=== PATIENT | male | born 1955 | race Caucasian/White ===

== ENCOUNTER 2018-03-15 05:20 | Inpatient (IN) | payer SELFPAY ==
[2018-03-01 10:45] VITALS: BP 133/93; PULSE 69; RESP 16; TEMP 36.5; O2SAT 96; BMI 27.3
--- NOTE | 2018-03-01 13:52 | PCM.HP.BLA ---
History and Physical DATE OF SURGERY: 03/15/2018 SCHEDULED PROCEDURE: Direct anterior left total hip arthroplasty HISTORY OF PRESENT ILLNESS: This is a 62-year-old male who presents today for ongoing pain in the left hip for over 2 years. Patient's pain has been constant. He denies any trauma or injury. Patient has increased pain with prolonged sitting as well as going up and down stairs and walking any amount of distance. Patient feels difficult time with activities of daily living that require any walking. Patient complains of left groin pain. He does have start up pain. Pain does waken him at night. Patient has tried conservative measures consisting of rest, and ice with minimal relief. 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 Patient has no documented medical history. He has been using a cane for ambulatory assistance. He denies previous surgery on the left hip. She currently denies any chest pain, shortness of breath, fevers chills, recent infections. We are obtaining surgical clearance and patient's primary care physician. After failing conservative measures and discussing all treatment options with Dr. Ankur Santizo, patient like to proceed with an anterior total hip arthroplasty on the left. REVIEW OF SYSTEMS: ROS: Const: Denies change in appetite, fever and weight change. CV: Denies chest pain, heart murmur and irregular heartbeat. Resp: Denies cough, pneumonia, shortness of breath, tuberculosis and wheezing. GI: Denies constipation, diarrhea, heartburn, nausea, rectal itching, bloody stools and vomiting. : Denies incontinence. Musculo: Reports pain and trouble walking, but denies leg swelling and weakness. Skin: Denies Raynaud's, history of shingles and tattoo. Neuro: Denies ambulatory dysfunction, dizziness, numbness/tingling and tremor. Psych: Denies anxiety, insomnia and stress. Kyle/Lymph: Denies anemia, bleeding/bruising tendency and past transfusion. Reviewed, no changes. 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 SOCIAL HISTORY: SH: Marital: .Occupation: Self Employed - [employer].Work Status: Currently Working.Hand Dominance: Right-handed. Personal Habits: Cigarette Use: Never Smoked Cigarettes.Alcohol: Denies use.Drug Use: Denies Use.Enjoy Exercising: Daily. Reviewed, no changes. VITALS: Ht: 69.5 Wt: 196lb Wt k.906 BMI: 28.5 BP: 134/89 Pulse: 76 Resp: 18 T: 97.4 T: 36.3C ALLERGIES: Penicillin MEDICATIONS: No Active Medications PRE-OP EXAM: General appearance:NORMAL Other: Eyes: Conjunctivae and lids: NORMAL Pupils: ERR Ears, Nose, Mouth, and Throat: NORMAL Other: Inspection of lips, teeth and gums: NORMAL Other: Neck: Examination of neck: no masses noted. Respiratory: Assessment of respiratory effort: NORMAL Other: Auscultation of lungs: clear to auscultation no wheezes, rhonchi or rales. Cardiovascular: Auscultation of heart: regular rate and rhythm, no murmurs, gallops or rubs. Exam of carotid arteries: NORMAL Other: Gastrointestinal: Exam of abdomen: soft, nontender, nondistended bowel sounds present. PHYSICAL EXAMINATION: Patient walks with an antalgic gait. Left hip is cool to touch without erythema. Patient has left hip flexion to 80, internal rotation 5, external rotation 30. Pain is reproduced with flexion and internal rotation. Sensations intact to light touch. IMAGING STUDIES: X-rays of the left hip reveal joint space narrowing, subchondral sclerosis, and osteophyte formation consistent with severe osteoarthritis. Patient does have noticeable leg length discrepancy on radiographs with flattening of the femoral head and large cysts in the femoral head and acetabulum. IMPRESSION: 1. Severe left hip osteoarthritis PLAN: Dr. Santizo did discuss and review with the patient all treatment options including surgical versus nonsurgical options. Patient does wish to proceed with the above-stated procedure. Potential risks, benefits, and complications of the procedure were discussed in detail including but not limited to , infection, nerve and blood vessel damage, persistent pain, numbness, tingling, paresthesias, blood clot, pulmonary embolism, and requirement for possible further surgery. The patient expressed full understanding and has no further questions for the doctor. Patient does agree to proceed with the above-stated procedure and has signed the surgery consent form. ___ I have re-examined the patient. There are no clinical changes since date of exam. ___ See progress notes for changes. ___ Dictated on admission Date: Time: Signature:
--- NOTE | 2018-03-09 10:34 | CASEMGMT ---
Attempted to reach patient to discuss any discharge needs after upcoming surgery. Spoke with , Luiza, patient is at work and on the road currently. Per , plan is for patient to return home after surgery. There are 3 steps into the home from outside and bedroom/bathroom are on 1st level. is planning to assist as needed at home and will also assist with transportation to/from outpatient therapy at [facility]. states that patient has a cane and walker at home and that the toilet is a higher toilet.
[2018-03-15] VITALS (14 sets, daily range): BP systolic 108–147; BP diastolic 65–97; PULSE 68–86; RESP 16–18; TEMP 36.4–37.1; O2SAT 92–98; BMI 27.3; BMI 26.8
[2018-03-15] MEDS: oxyCODONE HCl Cr 10 MG Tablet PO (06:18)
[2018-03-15] MEDS: Acetaminophen 500 MG Tablet 1000 MG PO ×3 (06:18→21:09)
[2018-03-15] MEDS: Celecoxib 200 MG Capsule 400 MG PO (06:19)
[2018-03-15] MEDS: Lactated Ringers 1,000 ML 999 ML IV (06:33)
--- NOTE | 2018-03-15 06:44 | PCM.OPRPT ---
Report of Operation Date of Procedure: 03/15/18 Pre-Operative Diagnosis: Left hip primary osteoarthritis Post-Operative Diagnosis: Left hip primary osteoarthritis Surgery/Procedure Performed:: Left direct anterior total hip replacement Description of Surgical Findings:: Stable hip with equal leg lengths brake holder: Kvng Doty Anesthesiologist: Brooks Jimenez Special Medications: 600 mg clindamycin f, 1 g TXA at incision, 1 g TXA closure, 10 mg Decadron, joint cocktail (5 mg Duramorph, 30 mL of 0.5% Ropivicaine, 1000 units of epinephrine, 30 mg of Toradol) Specimen's removed: Bony cuts Estimated Blood Loss (mL): 200 Fluids Replaced: 1800 mm crystalloid Description of Procedure: Components used: 1. Accolade 2 Wainwright femoral stem size 5 127? 2. Bartolome trident acetabular shell size 60 mm 3. Wainwright X3 polyethylene G 4. Bartolome Biolox delta 36mm, +7.5mm femoral head Brief history operative indications: 62 yo m who failed conservative measures for their hip osteoarthritis. X-rays were consistent with osteoarthritis including joint space narrowing, osteophyte formation and subchondral cysts. Total hip replacement was discussed with the patient with risks and benefits including but not limited to blood loss, DVTs, PEs, neurovascular damage, dislocation, general risks of anesthesia including loss of life. Patient demonstrated an understanding medical clearance is obtained the patient was consented for surgery. Procedure: On the date of procedure the patient's L hip was marked in the preoperative area. Patient was then taken back to the operating room where anesthesia assumed control of the C-spine and airway and administered anesthetic. Patient was transferred to the operating table and placed in the supine position. The hips were placed at the break of the bed and a sacral bump was placed. The L lower extremity was then prepped out in a sterile fashion using chlorhexidine while the surgeon scrubbed. The PA was vital in the positioning of the patient. Upon reentering the room the L lower extremity was draped in the standard orthopedic fashion and the incision was marked. A timeout was called and everyone agreed upon the side, the site, the procedure be performed, antibody given, and patient's identity. At this time incision was made through skin, subcutaneous tissue, and fat down to fascia. The fascia was then incised and the TFL was retracted laterally. A retractor was placed on the lateral border of the femoral neck. Attention was directed to the inferior portion of the approach and all crossing vessels were identified and appropriately coagulated. A retractor was then placed on the medial portion of the femoral neck. The anterior capsule was then cleared of all soft tissue and then H shaped capsulotomy was made. The retractors were then placed inside the capsule. The femoral neck was identified and a cleanup cut was made. At this time a power corkscrew was used to remove the femoral head. Attention was then turned toward the acetabulum where the soft tissues were appropriately retracted and the acetabulum was sequentially reamed to 59 mm. Bone cyst was debrided in the superior acetabulum. Bone graft from the reamings and femoral head were morselized and the bone cyst was packed with graft. A 60 mm cup was then selected and impacted into place. Acetabular liner was impacted into place and locking mechanism was verified. The position of the acetabular cup was then verified under live fluoroscopy. Attention was then turned to the femur. Soft tissue releases on the medial and lateral femoral neck were appropriately done, the leg was externally rotated and lateralized. A Power retractor was placed medially and proximally to the greater trochanter this allowed appropriate visualization and exposure of the femoral canal. Rongeour was then used to remove excess lateral bone. A canal finder and entry broach were used to open the proximal canal. Once we verified we were down the femoral canal we subsequently broached up to a size 5 femur. The appropriate neck was placed in the previously selected head was trialed with a +7.5 mm neck. Traction was pulled and the hip was reduced with internal rotation. Once it was appropriately reduced and stability was checked. There was minimal shuck, equal leg lengths and appropriate stability with hyperextension and external rotation as well as with 90? flexion and internal rotation. Fluoroscopy was then also used to verify the position of the components and leg lengths using the contralateral side for comparison. The trial components were then dislocated the proximal femur was again exposed and the components were removed from the wound. The final components were verified and opened. The wound was copiously irrigated out with normal saline. The acetabulum was checked for any residual debris. The final components were placed and impacted. Traction and internal rotation were again used to reduce the hip. After adequate reduction the hip remained stable with appropriate leg lengths. The final components were once again checked with live fluoroscopy and were found to be satisfactory. The wound was then copiously irrigated with normal saline once more, and hemostasis was obtained. Closure was then done using #1 Vicryl runner to close the fascia. A 2-0 vicryl interuppted sutures were used to close the subcutaneous skin. A 3-0 Monocryl and Steri-Strips were used for final skin closure. A Silverlon dressing was placed. Patient was awakened by anesthesia and transferred to the [place]. Patient was then transferred to the PACU for recovery. Postoperative plan: Patient will get 24 hours postop antibiotics. Patient will get in-house physical therapy and will be weight-bear as tolerated. Patient will follow up in office in 2 weeks for a wound check and x-rays. During the course of the procedure the physician producer assistant played a vital role. His intimate knowledge of my steps in the procedure aided in safe and expedient completion of the procedure. The PA played a vital rolls in positioning particularly in obtaining the appropriate positioning of the sacral bump. The PA was also vital in the retraction of soft tissues during the exposure and especially the femoral work as this is a vital part of the procedure to prevent complications and fractures. The PA was also vital and protecting soft tissues during times of bony cuts and reaming. He also played a vital role in closure with my direct supervision. The PA was also important during reduction and dislocation of the joint and trials intraoperatively. Grafts/Implants Used: Wainwright - Complications none - Admit VTE Documentation VTE Present on Admission: No VTE Mechan Device Prophylaxis: SCD's, Thigh High JUSTIN Hose VTE Pharm Prophylaxis ordered?: Yes
--- NOTE | 2018-03-15 07:15 | HIP_PTH ---
PATIENT: PRACHI ORTIZ LOC: [facility] U#:[id number] AGE/SX: 62/M ROOM: NE305 RE03/15/[address]: Dr. Ankur Santizo MD : 1955 BED: 1 DIS: 03/16/2018 SPEC #: [id number] RECD: 03/15/18 13:53 STATUS: HAYLEY REAnn #: [id number] ROSA: 03/15/18 07:[address]: Ankur Santizo DEPT: SURGICAL PATHOLOGY RECD BY: Stella Andre ENTERED: 03/15/18 14:26 SP TYPE: TOTAL HIP OTHR DR: Out of Town Doctor Tissues: Hip, NOS Procedures: Decalcification bone/plaque Surgery Specimen Level IV HEADER OPERATION: Left total hip anterior approach PRE-OP DIAGNOSIS: Osteoarthritis left hip TISSUE SUBMITTED: Left femoral head and bone MICROSCOPIC DIAGNOSIS Left femoral head and bone, total hip resection: Consistent with severe degenerative joint disease. Mild synovial hyperplasia with associated minimal chronic inflammation. AM:kunal 03/22/18 MICROSCOPIC DESCRIPTION Slides are reviewed. GROSS DESCRIPTION Received is one container designated left femoral head and bone. The specimen consists of a roy femoral head with portion of femoral neck. The femoral head measures 6.5 x 6 x 5 cm and a portion of soft tissue attached to it measures 5 x 3 x 2 cm. A detached portion of bone is noted consistent with portion of femoral neck measures 5 x 4 x 1.5 cm. The articular surface displays prominent osteophyte formation, eburnation and bone erosion. Also present in the specimen container are multiple irregular fragments of bone reamings and pink-yellow soft tissue measuring in aggregate 8 x 9 x 3 cm. The soft tissue attached to the femoral head shows villous appearance. Platen Press Feeder sections are submitted in three cassettes as follows: 1 & 2 - soft tissue attached to the femoral head, 3 ? femoral head after decalcification. / SJ:kunal 03/15/18 TC:5 CPT: 89518, 19324
[2018-03-15] MEDS: Lactated Ringers 1,000 ML 125 ML IV ×2 (09:30→11:03)
[2018-03-15] MEDS: Scopolamine 1mg/72hr Patch 1 PATCH TD (09:31)
[2018-03-15] MEDS: Senna/Docusate Sodium 1 Tablet 2 TABLET PO ×2 (12:05→21:10)
[2018-03-15] MEDS: Famotidine 20 MG Tablet PO (12:06)
[2018-03-15] MEDS: Aspirin 81 MG TAB.CHEW PO (16:32)
[2018-03-15] MEDS: Meloxicam 7.5 MG Tablet PO (21:10)
[2018-03-16 02:00] VITALS: BP 114/71; PULSE 80; RESP 17; TEMP 36.4; O2SAT 98
[2018-03-16] MEDS: Acetaminophen 500 MG Tablet 1000 MG PO (05:54)
[2018-03-16 06:52] LABS: Hemoglobin 12.3 g/dl (13.0-16.5); Mean Corp Hgb Conc 34.2 g/gl (32-36); Mean Corpuscular Hgb 31.4 pg (27.0-32.0); Mean Corpuscular Volume 91.8 fL (80-94); Mean Platelet Vol. 8.7 fl (6.2-12.0); Platelet Count 264 K/mm3 (150-450); RBC Distribution Width CV 12.5 % (11.6-14.6); RBC Distribution Width SD 41.2 fl (35.1-43.9); Red Blood Count 3.92 M/mm3 (4.6-6.2); White Blood Count 10.1 K/mm3 (4.4-11.0)
[2018-03-16 07:01] LABS: Anion Gap 10 (5-15); BUN 17 mg/dL (7-18); Calcium,Total 8.2 mg/dL (8.5-10.1); Chloride 107 mmol/L (98-107); EST Glomerular Filtration Rate 91 mL/min (>60); Est Glom Filt Rate - Afr Amer 110 mL/min (>60); Estimated Creatinine Clearance 93.41 ml/min; Glucose 98 mg/dL (74-106); Potassium 4.3 mmol/L (3.5-5.1); Scan Indicated on CBC? Y/N NO; Sodium Level 143 mmol/L (136-145)
[2018-03-16 07:36] VITALS: BP 126/83; PULSE 87; RESP 18; TEMP 36.7; O2SAT 96
[2018-03-16] MEDS: Senna/Docusate Sodium 1 Tablet 2 TABLET PO (07:39)
[2018-03-16] MEDS: Meloxicam 7.5 MG Tablet PO (07:39)
[2018-03-16] MEDS: Famotidine 20 MG Tablet PO (07:39)
[2018-03-16] MEDS: Aspirin 81 MG TAB.CHEW PO (07:39)
--- NOTE | 2018-03-16 09:42 | PCM.PN.ORT ---
Subjective: The patient was sitting in bedside chair upon examination. Patient denies any chest pain, shortness of breath, dizziness, lightheadedness, nausea or vomiting, or calf pain. Pain is controlled on medications. No adverse overnight events. Patient states pain is very well controlled and he is tolerated therapy very well. Patient is wishing to go home today. Objective: Vital signs stable and afebrile. Patient is able to plantarflex and dorsiflex actively. Sensation is intact to light touch to saphenous, sural, superficial and deep peroneal, and tibial distribution. Dressing is clean dry and intact. Negative Homans bilaterally, negative signs and symptoms of DVT. - Physical Exam General: Alert, Oriented x3, Cooperative, No apparent distress Vital Signs Temp Pulse Resp BP Pulse Ox 98.1 F 87 18 126/83 H 96 03/16/18 07:36 03/16/18 07:36 03/16/18 07:36 03/16/18 07:36 03/16/18 07:36 Oxygen Delivery Method Room Air Weight: 89.811 kg Body Mass Index (BMI) 26.8 Intake and Output for Last 24 Hours 03/14/18 03/15/18 03/16/18 23:59 23:59 23:59 Intake Total 5681 / 5681 368 / 368 Output Total 3400 / 3400 650 / 650 Balance 2281 / 2281 -282 / -282 Laboratory Tests Past 24 Hrs 03/16/18 03/16/18 05:57 05:57 WBC 10.1 RBC 3.92 L Hgb 12.3 L Hct 36.0 L MCV 91.8 MCH 31.4 MCHC 34.2 RDW 12.5 RDW Differential 41.2 Plt Count 264 MPV 8.7 Sodium 143 Potassium 4.3 Chloride 107 Carbon Dioxide 26.0 Anion Gap 10 BUN 17 Creatinine 0.90 Estim Creat Clear Calc 93.41 Est GFR (MDRD) Af Amer 110 Est GFR (MDRD) Non-Af 91 BUN/Creatinine Ratio 19.0 Glucose 98 Calcium 8.2 L Medical Necessity - Tobacco Use Smoking Status: Never smoker Tobacco Use: Non-smoker Assessment/Plan 1. S/P left direct anterior total hip arthroplasty POD #1 2. Continue Pain Medications: Tylenol and OxyIR 3. DVT Prophylaxis: 81 mg aspirin twice daily for 4 weeks postoperatively 4. PT/OT: Weightbearing as tolerated 5. H & H: 12.3/36.0, asymptomatic 6. Encouraged Incentive Spirometry 7. Disposition: Orthopedically stable, plan is for discharge home today. Prescriptions will be E scribed to [facility]. Patient is to follow-up per postop instructions.
--- NOTE | 2018-03-16 09:48 | PCM.DC.THR ---
Discharge Diet: No Restrictions Discharge Activity: May Not Drive - while taking narcotic pain medications. May shower in (days): 1 - only if incision is dry and without drainage. Do NOT soak/submerge in tub/pool/osman/stream/hot tub. Ice area for (Minutes): 20 - Every 1-2 hours while awake Weight Bearing Status: Weight bearing as tolerated Elevate: Operative Extremity Additional Activity Instructions:: Wear elastic stockings for 2 weeks. DO NOT use alcohol with narcotic pain medication. DO NOT make important decisions while taking narcotic medication. If you have problems with taking your medication (rash, itching, nausea, etc.) call the office at once. Call your doctor if your incision/area has: Increased Pain/ Swelling, Increased Redness, Foul Smelling Discharge Call your doctor if you observe: Fever of 101 or Higher Remove Dressing in (days):: 4 - Okay to remove dressing on March 20, 2018 Additional Instructions: Follow [facility] postop instructions Allergies/Adverse Reactions: Allergies Penicillins Allergy (Verified 03/01/18 10:21) Itching Medications to take at Discharge Acetaminophen [Tylenol] 1,000 mg PO Q8 #90 tab 03/16/18 Aspirin [Aspirin, Baby] 81 mg PO BIDCM #60 tab.chew 03/16/18 Famotidine [Pepcid] 20 mg PO DAILY #30 tab 03/16/18 Meloxicam [Mobic] 7.5 mg PO BID #30 tab 03/16/18 Oxycodone [Oxyir] 5 - 10 mg PO Q4H PRN PRN 4 Days #45 tab 03/16/18 Senna/Docusate Sodium [Senokot-S] 2 tab PO BID #20 tab 03/16/18 The following prescriptions were given: Oxycodone [Oxyir] 5 - 10 mg PO Q4H PRN PRN 4 Days #45 tab PRN Reason: Mod-Severe Pain (4-1010) Acetaminophen [Tylenol] 1,000 mg PO Q8 #90 tab Famotidine [Pepcid] 20 mg PO DAILY #30 tab Aspirin [Aspirin, Baby] 81 mg PO BIDCM #60 tab.chew Meloxicam [Mobic] 7.5 mg PO BID #30 tab Senna/Docusate Sodium [Senokot-S] 2 tab PO BID #20 tab Primary Care Physician: Baylee Doctor,Out of [Primary Care Provider] - Test Results: Test results from this visit will be discussed in further detail at your follow-up appointment, if applicable. Please Follow Up With: Physical therapy Please Follow Up With: Asvhin Gautam PA-C When: 03/29/18 @ 9:15 am
--- NOTE | 2018-03-16 10:38 | CASEMGMT ---
MELISSA TARIQ Face to Face with patient for initial transition planning/care coordination assessment. RN CM introduced self and role at [facility]. Patient sitting in chair, alert and oriented. Patient willing to participate in assessment and is able to answer all questions appropriately. Care providers, pharmacy, and demographics verified. Pt wishes to discharge home, and is setup with [facility] for outpatient therapy. Patient states he has no further needs or concerns at this time. CM to follow for discharge planning needs that may arise. Disposition Plan: Patient to discharge home with outpatient therapy, family support, and follow-up plans in place. Theresa RASHID, RN, CM
--- NOTE | 2018-03-16 10:46 | CASEMGMT ---
Social Work Note Pt is listed as self-pay. SW placed a call to [facility] and spoke with Theresa. Theresa in [facility] states that pt has [facility] Package Plan. Theresa Casas AGRICULTURAL ECONOMICS PROFESSOR, BODY SHOP TECHNICIAN
[2018-03-16 13:51] VITALS: BP 123/82; PULSE 84; RESP 16; TEMP 36.7; O2SAT 95
== END 2018-03-16 13:58 | disposition home or self-care (01) | DRG 470 ==
PROVIDERS: Admitting Provider Specialist; Visit Provider Specialist
PROC: 0SRB04A Replacement of Left Hip Joint with Ceramic on Polyethylene Synthetic Substitute, Uncemented, Open Approach (ICD-10-PCS; CPT 27284; principal; 2018-03-15 06:50)
DX: M16.12 Unilateral primary osteoarthritis, left hip (principal)
CPT/HCPCS: 36415; 73501; 73502; 76000; 80048; 85027; 87081; 88305; 88311; 97110; 97116; 97162; 97166; 97530; 99251; C1776; J7120; G0463